=== PATIENT | female | born 1985 | race Caucasian/White ===

== ENCOUNTER 2024-07-25 09:31 | Inpatient (IN) | payer BC ==
[2024-07-25] MEDS ORDERED: MAG HYDROX/AL HYDROX/SIMETH 355 ML BOTTLE PO PRN (11:23)
[2024-07-25] MEDS ORDERED: ACETAMINOPHEN TAB 325 MG TAB PO PRN (11:23)
[2024-07-25] MEDS ORDERED: IBUPROFEN 600 MG TAB PO PRN (11:23)
[2024-07-25] MEDS ORDERED: MAGNESIUM HYDROXIDE 2,400 MG/30 ML CUP PO PRN (11:23)
[2024-07-25] MEDS: lamoTRIgine 100 MG TAB PO SCH (21:54)
--- NOTE | 2024-07-26 00:19 | P.CONS ---
History of Present Illness - Reason for Consult Consult date: 07/26/24 - History of Present Illness The patient is a 39-year-old female who was transferred from [facility] where the patient had initially presented with complaints of depression and suicidal ideation. The patient was seen in the mental health unit accompanied by an MHU RN. The patient reported no active physical complaints at the time of interview. She does report drinking alcohol socially 3-4 times a week. She denied tobacco or illicit substance use. She denied experiencing chest discomfort, shortness of breath, fever, chills, cough, nausea, vomiting, abdominal pain, diarrhea. Review of systems: Pertinent positives and negatives as discussed in HPI, a complete review of systems was performed and all other systems are negative. Physical examination: General: non toxic, no distress, appears at stated age, morbidly obese Derm: no unusual rashes/lesions, no unusual ecchymoses, warm, dry Head: atraumatic, normocephalic, symmetric Eyes: EOMI, no lid lag, anicteric sclera ENT: Nose and ears atraumatic, no thrush, no pharyngeal erythema Neck: trachea midline, supple Mouth: no lip lesion, mucus membranes moist Cardiovascular: S1S2 reg, no murmur, no edema Lungs: CTA bilateral, no rhonchi, no rales , no accessory muscle use Abdominal: soft, nontender to palpation, no guarding Ext: no gross muscle atrophy, no contractures, Neuro: No gross focal neuro deficits noted Psych: Alert, oriented, appropriate affect Assessment: Depression and suicidal ideation Plan: Defer management of depression and suicidal ideation to the primary psychiatry service Thank you for allowing us to participate in the care of this patient. We will follow peripherally. Do not hesitate to contact us with questions. Someone can be reached from the [facility] hospitalist group at all hours of the day at [phone]. Past Medical History Additional Past Medical History / Comment(s): ADHD History of Any Multi-Drug Resistant Organisms: None Reported Past Surgical History: No Surgical Hx Reported Past Anesthesia/Blood Transfusion Reactions: No Reported Reaction Past Psychological History: ADD/ADHD, Bipolar, Depression Smoking Status: Never smoker Medications and Allergies Home Medications Medication Instructions Recorded Confirmed Type ARIPiprazole [Abilify] 7.5 mg PO DAILY 07/25/24 07/25/24 History Citalopram Hydrobromide [CeleXA] 40 mg PO DAILY 07/25/24 07/25/24 History lamoTRIgine [Lamictal] 300 mg PO DAILY 07/25/24 07/25/24 History Allergies Allergy/AdvReac Type Severity Reaction Status Date / Time No Known Allergies Allergy Verified 07/25/24 11:22 Physical Exam Vitals: Vital Signs Temp Pulse Resp BP Pulse Ox 07/25/24 21:29 97.8 F 82 16 135/78 95 Intake and Output 07/25/24 07/25/24 07/26/24 14:59 22:59 06:59 Other: Weight 127 kg 128.367 kg
[2024-07-26] MEDS: CITALOPRAM HYDROBROMIDE 20 MG TAB PO SCH (08:32)
[2024-07-26] MEDS: ARIPiprazole 5 MG TAB PO SCH (08:32)
[2024-07-26] MEDS ORDERED: lamoTRIgine 100 MG TAB PO SCH (09:00)
--- NOTE | 2024-07-26 12:52 | P.HP ---
Psychiatric H&P - . H&P Date: 07/26/24 History & Physical: Allergies Allergy/AdvReac Type Severity Reaction Status Date / Time No Known Allergies Allergy Verified 07/25/24 11:22 Vital Signs Temp 97.3 F L 07/26/24 09:00 Pulse 85 07/26/24 09:00 Resp 16 07/26/24 09:00 BP 135/89 07/26/24 09:00 Pulse Ox 94 L 07/26/24 09:00 FiO2 Intake & Output 07/25/24 07/26/24 07/26/24 18:59 06:59 18:59 Weight 127 kg 128.367 kg Laboratory Last Values Estimated Ave Glu mg/dL 117 mg/dL 07/26/24 07:32 Hemoglobin A1c 5.7 % (<=6.0) 07/26/24 07:32 TSH 1.540 mIU/L (0.465-4.680) 07/26/24 07:32 07/26/24 12:42 IDENTIFYING DATA: Patient is a 39-year-old female, , employed CHIEF COMPLAINT: SI HPI: Patient presented to the hospital with SI. Per petition, "stated had a clear revision on how she would commit suicide" and per clinical CERT, "patient presents to the ED petition by police for making suicidal statements. Patient is endorsing severe depression with suicidal ideations will not state whether or not she has a suicidal plan. She is unable to reliably contract for safety and is requiring psychiatric hospitalization for further evaluation and stabilization." Patient seen and evaluated on the unit and was agreeable with speaking to sheet writer in office. She states developing the urge to cut with a plan to kill herself that began back in January however has been worsening. She mentions speaking about this to her coworkers who themselves contacted 911. Patient notably displayed bright affect, reactive throughout the interview. She mentions cutting herself 2 days ago, still expressing urges to harm herself at this time however is able to contract for safety. Ongoing stressors include her job, issues with her , and politics. In addition she also note seasonal components to her depressive symptoms including when school starts in December and the change in seasons. She states upon reflection she realizes her support network is strong including her coworkers and her in addition to seeing a therapist regularly. She mentions her outpatient psychiatrist 1 month ago increased both Celexa and Abilify as she has been on her current cocktail of psychotropic medications for the past 3 years that she does find them somewhat helpful. She reports sleep and appetite changes, low energy, anhedonia. She mentions a history of bipolar disorder with a manic episode that occurred 3 years ago that resulted in hospitalization. She reports anxiety but denied any restlessness or racing thoughts. Patient denies any suicidal or homicidal ideations intent or plan. At this time patient denies any auditory or visual hallucinations. Patient denies any flight of ideas racing thoughts and increased in goal directed behavior. Patient admits to using an increase in alcohol over the past 4 months including 5 shots of hard liquor in addition to several beers daily, reporting social use. She denied any cravings or assistance to help with decreasing her alcohol intake. PAST PSYCHIATRIC HISTORY: Patient has a history of ADHD, bipolar disorder. Patient is currently prescribed Celexa 40 mg daily, lamotrigine 300 mg daily, Abilify 7.5 mg daily, Adderall XR 25 mg daily + Adderall IR 12.5 mg at 1 PM. Maps show patient last filled Adderall on 06/24/2024. Patient has tried several psychotropic medications in the past including Wellbutrin, Paxil, Lexapro, Pr ozac, Zoloft, lithium. Patient reports 1 previous inpatient hospitalization roughly 3 years ago at [place] in [place]. Patient sees Dr. Jody Brown and has a therapist at [facility]. Patient denies any history of suicide attempts in the past. She does report a history of self harm, last reported 2 days ago. PMH: as per ER note ALLERGIES: as per EMR SUBSTANCE USE HISTORY: As per HPI FAMILY PSYCHIATRIC/SUBSTANCE USE HISTORY: Patient reports a family history on her father side of bipolar disorder and that her father also abused alcohol. She states her maternal grandpa completed suicide. SOCIAL HISTORY: Patient is and has no children. 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 She denied any legal history MENTAL STATUS EXAM: General Appearance: Patient appears to be stated age is alert, directable, and attempts to cooperate. Patient appears to have fair hygiene and grooming. She is overweight Behavior: Patient is seated without any agitated behavior. Speech: Patient's speech is fluent and nonpressured. Mood/Affect: Patient reports their mood is depressed, affect is congruent and right, reactive Suicidality/Homicidality: Patient denies having any homicidal ideation intent or plan. Denies any suicidal ideations intent or plan Perceptions: Patient denies any visual hallucinations and denies any auditory h allucinations Though content/process: There is no evidence of any delusional thought content and thought process is linear and goal-directed. Memory and concentration: AOX3, grossly intact for the purposes of this session. Can spell "WORLD" backwards Judgment and insight: Poor STRENGTHS/WEAKNESSES: strength is that patient is resilient and has a strong support network. Weakness is that patient has poor judgment and is impulsive INTELLECT: Above average IMPRESSIONS: Bipolar 2 disorder, current episode depressed Cluster B traits Alcohol use disorder History of ADHD Anxiety, unspecified PLAN: -Patient is admitted under voluntary status to MHU for stabilization of psychiatric symptoms and safety. Patient has signed adult voluntary form and medication consent and is placed in patient's chart. -Medications : Increase Abilify to 10 mg daily for mood stabilization/bipolar disorder, continue Lamictal 300 mg daily for mood stabilization, Celexa 40 mg daily for depression, Adderall XR 25 mg daily + Adderall IR 12.5 mg at 1 PM for ADHD -Hydroxyzine and Zyprexa PRN for agitation/aggression -Started thiamine, MVM for etoh use -Patient was counselled on substance abuse and desired to cut back on use-Will offer patient subtance use rehab however she declined today -Patient was informed of the risks, benefits and side effects of the medication and patient verbally consented to taking the medications. Patient signed med consent form and was placed in chart. -Internal Medicine consult to perform medical evaluation and physical. -NRT -not needed as patient does not smoke -SW on board for discharge planning. Encourage patient to participate in groups to work on coping skills. Anticipate discharge back home with on Monday07/26/24 12:52
[2024-07-26] MEDS: lamoTRIgine 100 MG TAB PO STA (13:13)
[2024-07-26] MEDS: DEXTROAMPHETAMINE PO SCH ×2 (13:46→14:12)
[2024-07-26] MEDS: AMPHETAMINE PO SCH (14:12)
[2024-07-27 00:06] LABS: Appearance,Urine Cloudy (Clear); Bacteria,Urine Occasional /hpf; Bilirubin,Urine Negative (Negative); Blood,Urine Negative (Negative); Budding Yeast,Urine Rare /hpf; Color,Urine Yellow; Glucose,Urine (UA) Negative (Negative); Ketones,Urine Negative (Negative); Leukocyte Esterase,Urine Negative (Negative); Mucus,Urine Rare /hpf; Nitrite,Urine Negative (Negative); Protein,Urine Negative (Negative); RBC,Urine 1 /hpf (0-5); Specific Gravity,Urine 1.028 (1.001-1.035); Squamous Epithelial Cell,Urine 13 /hpf (0-4); Urobilinogen,Urine <2.0 mg/dL (<2.0); WBC,Urine 4 /hpf (0-5)
[2024-07-27] MEDS: lamoTRIgine 100 MG TAB PO SCH (08:39)
[2024-07-27] MEDS: THIAMINE 100 MG TAB PO SCH (08:39)
[2024-07-27] MEDS: FOLIC ACID 1 MG TAB PO SCH (08:39)
[2024-07-27] MEDS: ARIPiprazole 10 MG TAB PO SCH (08:39)
[2024-07-27] MEDS: MULTIVITAMINS, THERA 1 EACH TAB PO SCH (08:39)
[2024-07-27] MEDS ORDERED: ADDERALL 25 MG PO SCH (09:00)
[2024-07-27] MEDS: DEXTROAMPHETAMINE PO SCH (09:33)
--- NOTE | 2024-07-27 10:04 | P.PN ---
Progress Note - Text Progress Note Date: 07/27/24 Interval history: Patient was seen laying in bed today and was directable and agreeable to speak with senior mortgage underwriter. She appears to be fairly happy today, states that she is not feeling like she wants to cut herself. Claims that she was able to sleep fairly poor last night, only got a few hours. We spoke about adding trazodone which she is okay to try. Claims that she feels the increase in Abilify has been helping, endorses improvement in mood and also appetite. At this time patient denies any suicidal or homicidal ideations intent or plan. Denies any Auditory or visual hallucinations. Patient denies any side effects from the medications and has been compliant with meds. Mental status exam: General Appearance: Patient appears to be overweight, stated age is alert, directable, and cooperative. Behavior: No agitated behavior. Patient is calm and directable Speech: Patient's speech is fluent and nonpressured. Mood/Affect: Mood is improving mildly, affect is congruent and appears cheerful Suicidality/Homicidality: Patient denies having any suicidal or homicidal ideation intent or plan. Perceptions: Patient denies any auditory or visual hallucinations. Though content/process: There is no evidence of any delusional thought content and thought process is linear and goal-directed. Memory and concentration: AOX3, grossly intact for the purposes of this session Judgment and insight: improving mildly Assessment/Plan: Continue with current diagnosis. Patient continues to meet criteria for inpatient psychiatric admission for symptom stabilization and safety. Patient will be maintained on current psychotropic medication regimen, with the exception of starting trazodone 50 mg nightly for mood/insomnia. Monitor for medication compliance and for any psychotropic medication side effects. Will continue to monitor ongoing response to treatment. Encouraged participation in milieu.
[2024-07-27] MEDS: traZODone HCL 50 MG TAB PO SCH (20:30)
--- NOTE | 2024-07-28 11:35 | P.PN ---
Progress Note - Text Progress Note Date: 07/28/24 Interval history: Patient was seen wandering the hallways today and was directable and agreeable to speak with staff writer. Patient appears to be fairly pleasant today happy. Claims that she believes the staff has been doing very well for the patient's. Denied any overnight complaints except for feeling that the trazodone has not been strong enough. Was agreeable to have a higher dose for tonight. We spoke more about her medication side effects, she answered questions. She claims that her mood and anxiety been mildly improving. Claims that she is no longer having thoughts of harming herself or cutting herself. She states that her appetite is improving. At this time patient denies any suicidal or homicidal ideations intent or plan. Denies any Auditory or visual hallucinations. Patient denies any side effects from the medications and has been compliant with meds. Mental status exam: General Appearance: Patient appears to be overweight, stated age is alert, directable, and cooperative. Behavior: No agitated behavior. Patient is calm and directable, more cooperative today and pleasant Speech: Patient's speech is fluent and nonpressured. Mood/Affect: Mood is improving mildly, affect is congruent and appears cheerful Suicidality/Homicidality: Patient denies having any suicidal or homicidal ideation intent or plan. Perceptions: Patient denies any auditory or visual hallucinations. Though content/process: There is no evidence of any delusional thought content and thought process is linear and goal-directed. More future oriented Memory and concentration: AOX3, grossly intact for the purposes of this session Judgment and insight: improving mildly Assessment/Plan: Continue with current diagnosis. Patient continues to meet criteria for inpatient psychiatric admission for symptom stabilization and safety. Patient will be maintained on current psychotropic medication regimen, with the exception of increasing trazodone 100 mg nightly for mood/insomnia. Monitor for medication compliance and for any psychotropic medication side effects. Will continue to monitor ongoing response to treatment. Encouraged participation in milieu.
[2024-07-28] MEDS: traZODone HCL 100 MG TAB PO SCH (21:08)
[2024-07-28] MEDS: diphenhydrAMINE 50 MG CAP PO PRN (23:44)
[2024-07-29 10:18] VITALS: BP 119/82; PULSE 125; RESP 16; TEMP 97.4
--- NOTE | 2024-07-29 13:49 | P.DS ---
Providers Date of admission: 07/25/24 20:46 Expected date of discharge: 07/29/24 Attending physician: Maria Elena Owusu MD Consults: 07/25/24 11:23 Consult Physician Routine Consulting Provider: Dorys Physician Consult Reason/Comments: H&P Do you want consulting provider notified?: Yes Primary care physician: Stated None - Discharge Diagnosis(es) (1) Bipolar 2 disorder, major depressive episode Status: Acute Priority: High (2) Cluster B personality disorder Status: Acute Priority: High (3) Alcohol use disorder Status: Acute Priority: Medium (4) Anxiety Status: Acute Priority: Low (5) History of ADHD Status: Chronic Priority: Low Hospital Course: Admission HPI: Admission note was completed by story writer "Patient presented to the hospital with SI. Per petition, "stated had a clear revision on how she would commit suicide" and per clinical CERT, "patient presents to the ED petition by police for making suicidal statements. Patient is endorsing severe depression with suicidal ideations will not state whether or not she has a suicidal plan. She is unable to reliably contract for safety and is requiring psychiatric hospitalization for further evaluation and stabilization." Patient seen and evaluated on the unit and was agreeable with speaking to story writer in office. She states developing the urge to cut with a plan to kill herself that began back in January however has been worsening. She mentions speaking about this to her coworkers who themselves contacted 911. Patient notably displayed bright affect, reactive throughout the interview. She mentions cutting herself 2 days ago, still expressing urges to harm herself at this time however is able to contract for safety. Ongoing stressors include her job, issues with her , and politics. In addition she also note seasonal components to her depressive symptoms including when school starts in December and the change in seasons. She states upon reflection she realizes her support network is strong including her coworkers and her in addition to seeing a therapist regularly. She mentions her outpatient psychiatrist 1 month ago increased both Celexa and Abilify as she has been on her current cocktail of psychotropic medications for the past 3 years that she does find them somewhat helpful. She reports sleep and appetite changes, low energy, anhedonia. She mentions a history of bipolar disorder with a manic episode that occurred 3 years ago that resulted in hospitalization. She reports anxiety but denied any restlessness or racing thoughts. Patient denies any suicidal or homicidal ideations intent or plan. At this time patient denies any auditory or visual hallucinations. Patient denies any flight of ideas racing thoughts and increased in goal directed behavior. Patient admits to using an increase in alcohol over the past 4 months including 5 shots of hard liquor in addition to several beers daily, reporting social use. She denied any cravings or assistance to help with decreasing her alcohol intake." Hospital course: Upon admission to the unit patient was directable and agreeable to commence treatment and signed adult voluntary form.. Patient got along well with other patients on the unit and followed unit protocol. Patient was compliant with the medications and denied any side effects throughout hospital course. Patient was continued on her current medications including Celexa 40 mg daily for depression, Lamictal 300 mg daily for mood stabilization, Abilify was increased to 10 mg daily for mood stabilization/bipolar disorder. Patient states her outpatient provider recently increased her Celexa and patient was encouraged to continue to take this for up to 8 weeks to get the max benefit with the recent change. Patient spoke of her stressors and engaged in therapy both group and individual. Patient was also seen by medical team for history and physical exam. Throughout the course of the hospitalization patient gradually improved with regards to mood, anxiety, sleep and returned back to their baseline level of functioning. On the day of discharge patient denied any suicidal or homicidal ideations intent or plan denied any auditory or visual hallucinations. The patient denied any access to guns or weapons. Patient denied any paranoia and did not endorse any delusions. Patient does have a significant history of substance abuse and was counseled on abstaining from all substances including alcohol and marijuana. Patient was offered however declined inpatient substance-abuse rehab. Patient was also counseled on the medications and need for regular compliance and was encouraged to follow-up with their outpatient appointment for mental health and also for primary care. Prior to discharge a family meeting will be arranged by case management social worker to answer any questions and ensure safety upon discharge including making sure that guns/weapons are either removed from the home or locked away. Patient to be discharged back home with and will follow-up with [facility] [place] Mental status exam: General Appearance: Patient appears to be stated age is alert, pleasant, and cooperative. Patient is in no acute distress and has fair hygiene and grooming Behavior: Patient is calmly seated without any agitated behavior. Speech: Patient's speech is fluent and nonpressured. Mood/Affect: Patient reports their mood is "good", affect is congruent and full range, bright Suicidality/Homicidality: Patient denies having any suicidal or homicidal ideation intent or plan. Perceptions: Patient denies any auditory or visual hallucinations. Though content/process: There is no evidence of any delusional thought content and thought process is linear and goal-directed. Memory and concentration: AOX3, grossly intact for the purposes of this session. Can spell "WORLD" backwards correctly. Judgment and insight: Fair Impression: Bipolar 2 disorder, current episode depressed Cluster B traits Alcohol use disorder History of ADHD Anxiety, unspecified Plan: -Continue with discharge today as patient has improved and stabilized psychiatrically and is not currently an imminent threat to themself and/or others. Patient will remain at chronically elevated risk for harm to self and/or others due to their impulsivity and substance abuse. -Continue medications: Celexa 40 mg daily, Abilify 10 mg daily, Lamictal 300 mg daily -Patient was counseled on the need for medication compliance and appropriate follow-up at mental health and also primary care for medical issues. Patient verbalized understanding and agreed. -Social work to help coordinate patients discharge today arrange for and conduct family meeting to ensure safety upon discharge and answer any questions/concerns. also to ensure safe home environment that guns/weapons are either removed from the home or locked away. Social work also to arrange for patients follow up appointments with [facility] [place] for psychiatric care along with follow up with primary care provider. -Patient counseled on abstaining from recreational drugs and marijuana and alcohol. Was informed/educated on the adverse effects on their physical and mental health. Patient verbally agreed and understood. Patient was offered substance abuse treatment however declined at this time. -Patient was instructed to return to the hospital or seek immediate medical care if their psychiatric or medical symptoms do worsen or reoccur. Abnormal Labs 07/26/24 22:29 Urine Appearance Cloudy H Urine WBC Clumps Rare H Ur Squamous Epith Cells 13 H Urine Bacteria Occasional H Urine Mucus Rare H Urine Yeast (Budding) Rare H Vital Signs Temp 97.4 F L 07/29/24 10:17 Pulse 125 H 07/29/24 10:17 Resp 16 07/29/24 10:17 BP 119/82 07/29/24 10:17 Pulse Ox 99 07/29/24 10:17 FiO2 Intake & Output 07/28/24 07/29/24 07/29/24 18:59 06:59 18:59 Weight 129.727 kg Allergies Allergy/AdvReac Type Severity Reaction Status Date / Time No Known Allergies Allergy Verified 07/25/24 11:22 Patient Condition at Discharge: Stable Plan - Discharge Summary Discharge Rx Participant: No New Discharge Prescriptions: New ARIPiprazole [Abilify] 10 mg PO DAILY 30 Days #30 tab Thiamine [Vitamin B-1] 100 mg PO DAILY tab Folic Acid 1 mg PO DAILY tab Multivitamins, Thera [Multivitamin (formulary)] 1 each PO DAILY tab Continue lamoTRIgine [LaMICtal] 300 mg PO DAILY Citalopram Hydrobromide [CeleXA] 40 mg PO DAILY Discontinued ARIPiprazole [Abilify] 7.5 mg PO DAILY Discharge Medication List Citalopram Hydrobromide [CeleXA] 40 mg PO DAILY 07/25/24 [History] lamoTRIgine [LaMICtal] 300 mg PO DAILY 07/25/24 [History] ARIPiprazole [Abilify] 10 mg PO DAILY 30 Days #30 tab 07/29/24 [Rx] Folic Acid 1 mg PO DAILY tab 07/29/24 [Rx] Multivitamins, Thera [Multivitamin (formulary)] 1 each PO DAILY tab 07/29/24 [Rx] Thiamine [Vitamin B-1] 100 mg PO DAILY tab 07/29/24 [Rx] Follow up Appointment(s)/Referral(s): Danitza Matthew [Other] - 08/07/24 3:00 pm (08/07 @ 15:[address] Brown 08/14 @ 18:00 with Karen Abdullahi) [facility] [NON-STAFF] - 1 Week Patient Instructions/Handouts: Bipolar Disorder (DC), Abuse of Alcohol (DC), Anxiety (GEN) Activity/Diet/Wound Care/Special Instructions: [facility] Discharge Info Avoid the use of street drugs and alcohol. Take all medications as prescribed. When you are in need of refills on your medications, please contact your outpatient medical provider and/or outpatient psychiatrist. Please go to your scheduled outpatient appointments for aftercare treatment. If symptoms return or become worse, call the crisis line at or and/or visit the nearest emergency room for assistance. National Suicide and Crisis Lifeline - call or text 988 Discharge Disposition: HOME SELF-CARE
== END 2024-07-29 13:23 | disposition home or self-care (01) | DRG 885 ==
LOC: 3MHU 20:46
PROVIDERS: ADMIT Psychiatry & Neurology Psychiatry; ATTEND Psychiatry & Neurology Psychiatry
DX: F31.81 Bipolar II disorder (principal); R45.851 Suicidal ideations; F10.10 Alcohol abuse, uncomplicated; F60.89 Other specific personality disorders; F41.9 Anxiety disorder, unspecified; F90.9 Attention-deficit hyperactivity disorder, unspecified type; Z79.899 Other long term (current) drug therapy; Z91.52 Personal history of nonsuicidal self-harm
CPT/HCPCS: 80175; 81001; 81025; 83036; 84443